=== PATIENT | male | born 1960 | race Caucasian/White ===

== ENCOUNTER → 2020-08-03 15:01 | Outpatient (CLI) | payer BC, SELFPAY ==
[2020-08-03 16:35] LABS: Prostate Specific Ag, Diagnost 0.464 ng/ml (0.0-4.0)
== END ==
PROVIDERS: Visit Provider Urology
DX: C61 Malignant neoplasm of prostate (principal)
CPT/HCPCS: 36415; 84153

== ENCOUNTER → 2021-08-01 14:39 | Outpatient (CLI) | payer BC, SELFPAY ==
[2021-08-01 17:16] LABS: Prostate Specific Ag, Diagnost 0.238 ng/ml (0.0-4.0)
== END ==
PROVIDERS: Visit Provider Urology
DX: C61 Malignant neoplasm of prostate (principal)
CPT/HCPCS: 36415; 84153